=== PATIENT | male | born 1995 | race American Indian/Alaskan Native ===

== ENCOUNTER 2017-10-03 14:28 | Emergency (ER) | payer OTHER ==
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
[2017-10-03] MEDS ORDERED: MOTRIN ONE (17:39)
[2017-10-03] MEDS ORDERED: MOTRIN PO ONE (17:40)
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
[2017-10-03 20:23] VITALS: BP 122/74
== END 2017-10-03 20:59 | disposition home or self-care (01) ==
LOC: ED 14:28
DX: M62.830 Muscle spasm of back (principal); Z91.013 Allergy to seafood; V49.19XA Passenger injured in collision with other motor vehicles in nontraffic accident, initial encounter; Y93.89 Activity, other specified; Y99.8 Other external cause status; Y92.488 Other paved roadways as the place of occurrence of the external cause
CPT/HCPCS: 72070; 72100